=== PATIENT | female | born 1990 | race Caucasian/White ===

== ENCOUNTER 2018-07-14 16:01 | Inpatient (IN) | payer MEDICAID ==
[2018-07-14] VITALS (12 sets, daily range): BP systolic 102–138; BP diastolic 65–84; PULSE 98–134; TEMP 98.2–99.7
[~2018-07-14] VITALS: Ht 165.1 cm; Wt 67.7 kg
[2018-07-14] MEDS ORDERED: WELLBUTRIN 100100 MG (16:07)
[2018-07-14 16:24] LABS: BASO % 0.2 % (0.0-2.0); EOS % 0.1 % (0-4.0); GRAN # 15.1 (1.4-6.5); GRAN % 87.7 % (42.2-75.2); HEMATOCRIT 41.8 % (37.0-47.0); HEMOGLOBIN 14.4 g/dl (12.5-16.0); LYMPH # 1.2 (1.2-3.4); LYMPH % 7.1 % (20.0-51.0); MEAN CELL VOLUME 91 fl (80.0-100.0); MEAN CORPUSCULAR HEMOGLOBIN 31 pg (27.0-31.0); MEAN CORPUSCULAR HGB CONC 34 g/dl (33.0-37.0); MEAN PLATELET VOLUME 10.1 fl (7.4-10.4); MONO # 0.8 (0.1-0.6); MONO % 4.6 % (1.7-9.3); PLATELET COUNT 246 K/mm3 (130-400); RED BLOOD COUNT 4.61 M/mm3 (4.10-5.30); REDCELL DISTRIBUTION WIDTH-CV 12.8 % (11.5-14.5)
[2018-07-15 09:00] VITALS: BP 97/58; PULSE 77
[2018-07-15 19:35] VITALS: BP 101/71; PULSE 78; TEMP 97.7
== END 2018-07-16 13:16 | disposition home or self-care (01) | DRG 806 ==
LOC: LDR 16:01 → OB 19:30
PROVIDERS: Obstetrics & Gynecology
PROC: 10E0XZZ Delivery of Products of Conception, External Approach (ICD-10-PCS; principal; 2018-07-14)
DX: O99.824 Streptococcus B carrier state complicating childbirth (principal); F33.9 Major depressive disorder, recurrent, unspecified; Z37.0 Single live birth; Z3A.37 37 weeks gestation of pregnancy; O99.344 Other mental disorders complicating childbirth; F41.9 Anxiety disorder, unspecified
CPT/HCPCS: J2540; J2590; J7120

== ENCOUNTER 2019-12-14 14:04 | Outpatient (CLI) | payer MEDICAID ==
[~2019-12-14] VITALS: Ht 165.1 cm; Wt 75.5 kg
[~2019-12-14 14:04] MED LIST: WELLBUTRIN 100100 MG
--- NOTE | 2019-12-14 14:10 | NUR ---
Presents to labor and delivery. States has been leaking fluid since last night at 9 p.m. Vaginal check done by nurse Suzi. Reports positive for amniotic fluid, dilated to one, fifty percent effaced, station high. Iv start to right hand with 20 auto guard. Lactated ringers started at 75cc an hour. 1435 Ampicillin 2 grams given as ordered. 1455 Betamethasone 12 mg im given to left gluteal. 1508 Mag sulfate 4 gm started as ordered and per policy. 1540 Mag 2 gm iv given as ordered.
[2019-12-14 15:00] VITALS: BP 121/78; PULSE 101
[2019-12-14 15:13] LABS: COLLECTION METHOD CATHETER
[2019-12-14] MEDS ORDERED: WELLBUTRIN XL150 MG PO (15:13)
[2019-12-14 15:15] LABS: BASO % 0.3 % (0.0-2.0); EOS # 0.1 (0.0-0.7); EOS % 0.9 % (0-4.0); GRAN # 7.7 (1.4-6.5); GRAN % 76.3 % (42.2-75.2); HEMATOCRIT 35.6 % (37.0-47.0); LYMPH # 1.6 (1.2-3.4); LYMPH % 15.7 % (20.0-51.0); MEAN CELL VOLUME 88 fl (80.0-100.0); MEAN CORPUSCULAR HEMOGLOBIN 30 pg (27.0-31.0); MEAN CORPUSCULAR HGB CONC 34 g/dl (33.0-37.0); MEAN PLATELET VOLUME 9.1 fl (7.4-10.4); MONO # 0.6 (0.1-0.6); MONO % 6.3 % (1.7-9.3); PLATELET COUNT 364 K/mm3 (130-400); RED BLOOD COUNT 4.04 M/mm3 (4.10-5.30); REDCELL DISTRIBUTION WIDTH-CV 12.8 % (11.5-14.5)
[2019-12-14] MEDS ORDERED: PRENATAL MVI (15:15)
[2019-12-14 15:22] LABS: PH 7 (5-8); SQUAMOUS EPITHELIAL None Seen /hpf; URINE APPEARANCE Cloudy; URINE BACTERIA Rare /hpf; URINE BILIRUBIN Negative (NEGATIVE); URINE BLOOD 1+ (NEGATIVE); URINE COLOR Yellow; URINE GLUCOSE Negative (NEGATIVE); URINE KETONE 1+ (NEGATIVE); URINE LEUKOCYTE ESTERASE 3+ (NEGATIVE); URINE NITRATE Positive (NEGATIVE); URINE PROTEIN(semi-quant) Negative (NEGATIVE); URINE RBC 20-50 /hpf; URINE UROBILINOGEN Negative (NEGATIVE); URINE WBC >50 /hpf
[2019-12-14 15:30] VITALS: BP 110/74; PULSE 118
[2019-12-14 15:41] LABS: TRICYCLIC ANTIDEPRESS URINE NEGATIVE
[2019-12-14 16:00] VITALS: BP 113/66; PULSE 94
--- NOTE | 2019-12-14 16:20 | NUR ---
Migel hummel here. Report given on patient. Papers copied and given to e.m.s. Visits with patient. Assits patient to e.m.s. bed. 1630 Dismissed with Migel hummel alert, stable. 1640 [facility] called. Talked to nurse Crowell. Gave her report about patient.
== END 2019-12-14 16:30 | disposition short-term general hospital (02) ==
LOC: LDRO 14:04
PROVIDERS: Obstetrics & Gynecology
DX: O42.913 Preterm premature rupture of membranes, unspecified as to length of time between rupture and onset of labor, third trimester (principal); Z3A.31 31 weeks gestation of pregnancy
CPT/HCPCS: J0290; J0702; J3475; J7120